=== PATIENT | male | born 1955 | race Caucasian/White ===

== ENCOUNTER 2017-07-03 14:21 | Emergency (ER) | payer MEDICARE, OTHER ==
[~2017-07-03] VITALS: Ht 177.8 cm; Wt 93.4 kg
[~2017-07-03 14:21] MED LIST: ASPI-605 PO; ATOR20TA PO; BENA20TA9 PO; METF-440 PO
--- NOTE | 2017-07-03 14:25 | NUR ---
AAOX3, bibra from [facility] c/o generalized weakness, drowsy, pinpoint pupils. RR is even and unlabored with nad noted. skin is warm and dry. Awaiting md for eval.
--- NOTE | 2017-07-03 14:49 | NUR ---
Dr Chadwick at [facility] for eval.
[2017-07-03 15:02] LABS: BASOPHILS # (AUTO) 0.1 /CMM (0.0-0.2); BASOPHILS % (AUTO) 0.6 % (0.0-2.0); EOSINOPHILS % (AUTO) 5.8 % (0.0-6.0); HEMATOCRIT 40 % (39-51); HEMOGLOBIN 13.5 g/dL (13.5-17.5); LYMPHOCYTES # (AUTO) 2.8 /CMM (0.8-4.8); LYMPHOCYTES % (AUTO) 32.5 % (20.0-44.0); MEAN CORPUSCULAR HGB CONC 34 g/dl (31.0-36.0); MEAN CORPUSCULAR VOLUME 83 fL (80-96); MONOCYTES # (AUTO) 0.9 /CMM (0.1-1.30); MONOCYTES % (AUTO) 10.2 % (2.0-12.0); NEUTROPHILS # (AUTO) 4.3 /CMM (1.8-8.9); NEUTROPHILS % (AUTO) 50.9 % (43.0-81.0); PLATELET COUNT (AUTO) 290 /CMM (150-450); RDW COEFFICIENT OF VARIATION 15.8 (11.5-15.0); RED BLOOD CELL COUNT(AUTO) 4.74 MIL/uL (4.5-6.0); WHITE BLOOD COUNT (AUTO) 8.6 K/uL (4.3-11.0)
[2017-07-03 15:12] LABS: CALCIUM, SERUM 8.8 mg/dL (8.5-10.1); CARBON DIOXIDE 28 mmol/L (21-32); CHLORIDE 100 mmol/L (98-107); CREATININE 1.1 mg/dL (0.6-1.3); GLUCOSE 179 mg/dL (74-106); POTASSIUM 4.1 mmol/L (3.5-5.1); SODIUM SERUM 134 mmol/L (136-145); UREA NITROGEN, BLOOD 17 mg/dL (7-18)
[2017-07-03 15:18] LABS: ACETAMINOPHEN < 2 ug/ml (10-30); ALANINE AMINOTRANSFERASE 21 U/L (12-78); ALBUMIN 3.4 g/dL (3.4-5.0); ALCOHOL, BLOOD < 3 mg/dL (0-0); ALKALINE PHOSPHATASE 78 U/L (46-116); ASPARTATE AMINOTRANSFERASE 15 U/L (15-37); BILIRUBIN,DIRECT 0.1 mg/dL (0.0-0.2); BILIRUBIN,TOTAL 0.5 mg/dL (0.2-1.0)
--- NOTE | 2017-07-03 16:00 | NUR ---
Patient is resting comfortably in bed with eyes closed. Easily aroused. VSS
[2017-07-03 16:37] LABS: APPEARANCE,URINE Clear (CLEAR); BILIRUBIN,URINE Negative (NEGATIVE); BLOOD, URINE Negative Ery/uL (NEGATIVE); COLOR,URINE Yellow (YELLOW); KETONES,URINE Trace (NEGATIVE); LEUKOCYTE ESTERASE ,URINE Negative (NEGATIVE); NITRITE, URINE Negative (NEGATIVE); PH,URINE 5.5 (5.0-8.0); PROTEIN,URINE Negative (NEGATIVE); UGLUCOSE 100 MG/DL mg/dL (NEGATIVE); UROBILINOGEN,URINE 0.2 EU/dL (0.2)
[2017-07-03 16:50] LABS: BACTERIA,URINE Rare /HPF (None Seen); RBC,URINE NONE SEEN /HPF (0-2); SQUAMOUS EPITHELIAL CELL,UR Few /HPF (None Seen); WBC,URINE NONE SEEN /HPF (0-3)
[2017-07-03] MEDS ORDERED: IV NS 0.9% 1,000 ML BAG IV ONE (17:30)
--- NOTE | 2017-07-03 18:37 | NUR ---
CALL FOR FOOD TRAY.
--- NOTE | 2017-07-03 18:37 | NUR ---
FOOD TRAY CALLED FOR PT REQUESTED. VSS.
--- NOTE | 2017-07-03 19:03 | NUR ---
REPORT REC'D FROM CAESAR SCHWARZ FOR [facility].
--- NOTE | 2017-07-03 19:10 | NUR ---
PT STATED THAT HE WAS HUNGRY AND REQUESTED ANOTHER TUNA SANDWICH. PT REC'D A TUNA SANDWICH WITHOUT THE [place].
--- NOTE | 2017-07-03 19:12 | NUR ---
CALLING [facility] TO GIVE REPORT. SHIFT CHANGE AT [facility]. WILL CALL BACK IN 15 MINS.
--- NOTE | 2017-07-03 19:18 | NUR ---
CALLED [facility] FOR TRANSPORT BACK TO [facility], ETA 9199, TRIP# [id number]
--- NOTE | 2017-07-03 19:31 | NUR ---
PT APPEARS TO BE RESTING COMFORTABLY WITH NO S/S OF PAIN OR DISTRESS.
--- NOTE | 2017-07-03 19:47 | NUR ---
CALLING REPORT TO [facility] N[facility]. REPORT TO CAESAR URENA
--- NOTE | 2017-07-03 19:48 | NUR ---
CAESAR URENA NOT REC'ING REPORT. PT IS ON UNIT 1. REPORT GIVEN TO CAESAR NICE
--- NOTE | 2017-07-03 20:39 | NUR ---
[facility] RADIOLOGIC TECHNOLOGIST MAMMOGRAM ARRIVED. REPORT GIVEN. IV removed. Catheter intact and site benign. Pressure and 4x4 applied to site. No bleeding noted. Patient discharged to EMT in stable condition. Written and verbal after care instructions given. Patient verbalizes understanding of instruction. PT IS GOING TO [facility]. VSS. NAD NOTED.
[2017-07-03 20:41] VITALS: BP 110/67
--- NOTE | 2017-07-03 20:41 | NUR ---
COPY OF EKG, ALL LABS AND CT FINDINGS GIVEN TO EMT.
== END 2017-07-03 20:45 | disposition home or self-care (01) ==
LOC: ER 14:23
DX: R53.1 Weakness (principal); E11.9 Type 2 diabetes mellitus without complications; E78.5 Hyperlipidemia, unspecified; F10.10 Alcohol abuse, uncomplicated; F20.9 Schizophrenia, unspecified; F32.9 Major depressive disorder, single episode, unspecified; Z79.82 Long term (current) use of aspirin
CPT/HCPCS: 36415; 70450-TC; 80048-TC; 80076-TC; 80305; 81000-TC; 85025-TC; A4606; G0480; J7030; Z7610

== ENCOUNTER 2018-06-26 00:42 | Emergency (ER) | payer MEDICARE, OTHER ==
[~2018-06-26] VITALS: Ht 175.3 cm; Wt 89.4 kg
--- NOTE | 2018-06-26 00:57 | NUR ---
BS 54
--- NOTE | 2018-06-26 01:00 | NUR ---
JOHANA C/O HAVING LOW BS @ 2100 @ 55, ORANGE JUICE GIVEN PO BY 66 RA, UPON ARRIVAL STILL BS 55, SEEN AND EVAL DONE DR DOYLE OKAY TO FEED, SANDWICH GIVEN WITH ORANGE JUICE, PLACED ON ER BED 9 VS STABLE AOX3 ABLE TO AMBULATE.
[2018-06-26] MEDS ORDERED: IV D5/ 0.9% NACL 1,000 ML IV ONE (01:08)
[2018-06-26 01:10] LABS: BASOPHILS # (AUTO) 0.1 /CMM (0.0-0.2); BASOPHILS % (AUTO) 0.8 % (0.0-2.0); EOSINOPHILS % (AUTO) 6.7 % (0.0-6.0); HEMATOCRIT 39 % (39-51); HEMOGLOBIN 13.5 g/dL (13.5-17.5); LYMPHOCYTES # (AUTO) 3.5 /CMM (0.8-4.8); LYMPHOCYTES % (AUTO) 34.4 % (20.0-44.0); MEAN CORPUSCULAR HGB CONC 35 g/dl (31.0-36.0); MEAN CORPUSCULAR VOLUME 82 fL (80-96); MONOCYTES # (AUTO) 0.9 /CMM (0.1-1.30); MONOCYTES % (AUTO) 8.5 % (2.0-12.0); NEUTROPHILS % (AUTO) 49.6 % (43.0-81.0); PLATELET COUNT (AUTO) 234 /CMM (150-450); RED BLOOD CELL COUNT(AUTO) 4.74 MIL/uL (4.5-6.0); WHITE BLOOD COUNT (AUTO) 10.1 K/uL (4.3-11.0)
[2018-06-26 01:18] LABS: CALCIUM, SERUM 8.7 mg/dL (8.5-10.1); CREATININE 0.7 mg/dL (0.6-1.3)
[2018-06-26 02:57] LABS: APPEARANCE,URINE CLEAR (CLEAR); BILIRUBIN,URINE NEGATIVE (NEGATIVE); BLOOD, URINE NEGATIVE Ery/uL (NEGATIVE); COLOR,URINE YELLOW (YELLOW); KETONES,URINE NEGATIVE (NEGATIVE); NITRITE, URINE NEGATIVE (NEGATIVE); PH,URINE 7.5 (5.0-8.0); PROTEIN,URINE NEGATIVE (NEGATIVE); UGLUCOSE NEGATIVE (NEGATIVE); UROBILINOGEN,URINE 0.2 EU/dL (0.2)
[2018-06-26 02:59] LABS: LEUKOCYTE ESTERASE ,URINE NEGATIVE (NEGATIVE)
--- NOTE | 2018-06-26 03:00 | NUR ---
BS 150 MADE MADE AWARE, REPEAT BS IN 1 HR.
--- NOTE | 2018-06-26 03:00 | NUR ---
JEWEL RECHECKED 80 DR DOYLE MADE AWARE, CONT' TO MONITOR. Addendum: 06/26/18 at 0409 by LARRY 0200 JEWEL.
--- NOTE | 2018-06-26 04:08 | NUR ---
CALLED [facility] FOR S TRANSPORT - TRIP #[id number] ETA 20 MINUTES
--- NOTE | 2018-06-26 04:11 | NUR ---
BS 160 MADE MADE AWARE OKAY TO DC BACK TO FACILITY.
[2018-06-26 04:14] VITALS: BP 127/80
--- NOTE | 2018-06-26 04:52 | NUR ---
PT PICKED UP BY [facility] TRANSFERED TO [facility], REPORT GIVEN.
== END 2018-06-26 04:57 ==
LOC: ER 00:43
DX: E11.9 Type 2 diabetes mellitus without complications (principal); F25.9 Schizoaffective disorder, unspecified; F32.9 Major depressive disorder, single episode, unspecified; R45.851 Suicidal ideations; E78.5 Hyperlipidemia, unspecified; F10.10 Alcohol abuse, uncomplicated; Y90.9 Presence of alcohol in blood, level not specified; Z79.82 Long term (current) use of aspirin
CPT/HCPCS: 36415; 80048; 81001; 82962 ×4; 85025; 99285; J7070; 81000-TC